=== PATIENT | female | born 1980 | race Caucasian/White ===

== ENCOUNTER → 2024-11-12 11:15 | Outpatient (REF) | payer BC, SELFPAY | LOC: RAD 11:15 | PROVIDERS: ATTENDING PHYSICIAN Internal Medicine | DX: R06.09 Other forms of dyspnea (principal) | CPT/HCPCS: 71046 ==

== ENCOUNTER → 2025-07-27 07:04 | Outpatient (REF) | payer BC, SELFPAY | LOC: HWRAD 07:04 | PROVIDERS: ATTENDING PHYSICIAN Internal Medicine; FAMILY PHYSICIAN Internal Medicine | DX: M85.88 Other specified disorders of bone density and structure, other site (principal); Z79.810 Long term (current) use of selective estrogen receptor modulators (SERMs); E28.39 Other primary ovarian failure | CPT/HCPCS: 77080 ==